=== PATIENT | female | born 1995 | race Two or more races ===

== ENCOUNTER 2017-01-06 15:52 | Emergency (ER) | payer OTHER ==
[~2017-01-06] VITALS: Ht 162.6 cm; Wt 70.0 kg
[2017-01-06 16:05] VITALS: Ht 162.6 cm; Wt 70.0 kg
[2017-01-06] MEDS ORDERED: morphine 2 MG INJ IV ONE (16:30)
[2017-01-06] MEDS ORDERED: ONDANSETRON 4 MG INJ IV ONE (16:30)
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
[2017-01-06 16:58] LABS: CALCIUM 9.4 mg/dl (8.4-10.2); CREATININE 0.52 mg/dl (0.44-1.00)
[2017-01-06] MEDS ORDERED: IOHEXOL 300MG/ML 150 ML BTL ONE (18:49)
[2017-01-06] MEDS ORDERED: SOD CHLORIDE 0.9% 100 ML ONE (18:49)
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
[2017-01-06] MEDS ORDERED: IBUP800T25 PO (20:27)
[2017-01-06] MEDS ORDERED: METH-70 PO (20:27)
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
[2017-01-06 20:55] VITALS: BP 100/64; PULSE 88; RESP 20; TEMP 98.4
== END 2017-01-06 20:57 | disposition home or self-care (01) ==
LOC: E/R 15:52
DX: S39.81XA Other specified injuries of abdomen, initial encounter (principal); R40.2252 Coma scale, best verbal response, oriented, at arrival to emergency department; S46.912A Strain of unspecified muscle, fascia and tendon at shoulder and upper arm level, left arm, initial encounter; S20.212A Contusion of left front wall of thorax, initial encounter; R40.2142 Coma scale, eyes open, spontaneous, at arrival to emergency department; R40.2362 Coma scale, best motor response, obeys commands, at arrival to emergency department; V49.50XA Passenger injured in collision with unspecified motor vehicles in traffic accident, initial encounter
CPT/HCPCS: 71010; 73030; 74177; 80048; 96374; 96375; J2270; J2405; Q9967; Z7502; Z7610